=== PATIENT | female | born 1990 | race Hispanic/Latino ===

== ENCOUNTER 2020-12-01 08:29 | Outpatient (CLI) | payer OTHER ==
[2020-12-01 17:59] LABS: SARS-CoV-2 PCR by NAA Not Detected (NotDetected)
== END 2020-12-01 08:30 | disposition home or self-care (01) ==
LOC: CSHLAB 08:29
PROVIDERS: ATTEND Family Medicine
DX: Z20.822 Contact with and (suspected) exposure to COVID-19 (principal)
CPT/HCPCS: 87635; U0003; U0005

== ENCOUNTER 2020-12-04 18:57 | Inpatient (IN) | payer MEDICAID, OTHER, SELFPAY ==
[~2020-12-04 18:57] MED LIST: Bupivacaine 0.25% HCL 30 ML VIAL ONE
[2020-12-04] MEDS: Lactated Ringer's 1,000 ML IV SCH (20:48)
[2020-12-04] MEDS ORDERED: NS / Oxytocin 40 units/1000ml 1,000 ML IV PRN (20:50)
[2020-12-04] MEDS ORDERED: Ondansetron PF 4 MG/2 ML Vial IVP PRN (20:50)
[2020-12-04] MEDS ORDERED: Diphenoxylate HCl/Atropine Tablet PO PRN (20:50)
[2020-12-04] MEDS ORDERED: Promethazine HCl 25 MG/ML VIAL IM PRN (20:50)
[2020-12-04] MEDS ORDERED: Carboprost 250 MCG/ML AMP IM PRN (20:50)
[2020-12-04] MEDS ORDERED: Methylergonovine 0.2 MG/ML VIAL IM PRN (20:50)
[2020-12-04] MEDS ORDERED: Ibuprofen 800 MG TAB PO PRN (20:50)
[2020-12-04] MEDS ORDERED: Butorphanol Tartrate 1 MG/ML VIAL SLOW IVP PRN (20:50)
[2020-12-04] MEDS ORDERED: Misoprostol 200 MCG TAB PR PRN (20:50)
[2020-12-04] MEDS ORDERED: HYDROcodone/Acetaminophen 5/325 mg Tablet PO PRN (20:50)
[2020-12-04] MEDS ORDERED: Lidocaine 1% (PF) 30 ML VIAL SC PRN (20:50)
[2020-12-04] MEDS ORDERED: hydrALAZINE 20 MG/ML VIAL SLOW IVP PRN (20:50)
[2020-12-04] MEDS ORDERED: Penicillin G Potassium 5 MILL.UNITS in Sodium Chloride 0.9% 100 ML IVPB SCH (21:00)
[2020-12-04 21:08] LABS: Hemoglobin 14.2 g/dL (12.0-15.5); Mean Corpuscular HGB CONC 34.1 g/dL (32.0-36.0); Mean Corpuscular Hemoglobin 31.7 pg (27.0-33.0); Mean Corpuscular Volume 93.1 fl (81.6-98.3); Mean Platelet Volume 10.2 fl (7.4-10.4); Platelet Count 193 10x3/uL (150-450); RBC Distribution Width 13.6 % (11.5-14.5); Red Blood Cell (RBC) Count 4.48 10x6/uL (3.90-5.03); White Blood Cell (WBC) Count 7.5 10x3/uL (3.5-10.5)
[2020-12-04] MEDS ORDERED: Misoprostol 100 MCG TAB ONE (21:30)
[2020-12-04] MEDS ORDERED: Penicillin G Potassium 5 MILL.UNITS VIAL ONE (21:31)
[2020-12-04 21:43] LABS: Syphilis Antibody Nonreactive (Nonreactive); Syphilis Antibody Index 0.02 S/CO (<1.00 Non-Reactive)
[2020-12-04 21:44] LABS: Hep B Surf Ag Non-Reactive S/CO (NonReactive)
[2020-12-04] MEDS: Misoprostol 100 MCG TAB VAG SCH (21:44)
[2020-12-04 21:51] LABS: HBSAg Index 0.12 S/CO (0-0.99)
[2020-12-05 00:11] VITALS: BMI 28.1
[2020-12-05] MEDS: Lactated Ringer's 1,000 ML IV SCH ×2 (01:46→09:48)
[2020-12-05] MEDS: Penicillin G 2.5 MILL.units 2.5 MILL.UNITS in Premix Bag 1 BAG IVPB SCH ×4 (01:53→14:20)
[2020-12-05] MEDS: Misoprostol 100 MCG TAB VAG SCH ×2 (04:56→08:35)
[2020-12-05] MEDS ORDERED: Fentanyl 4 mcg/Bup 0.1% Cadd 100 ML ONE (09:41)
[2020-12-05] MEDS ORDERED: NS w/ Oxytocin 30 units 500 ML ONE (09:41)
[2020-12-05] MEDS ORDERED: Ondansetron PF 4 MG/2 ML Vial IVP PRN ×2 (10:20→17:43)
[2020-12-05] MEDS ORDERED: Lactated Ringer's 500 ML IV PRN (10:20)
[2020-12-05] MEDS ORDERED: Acetaminophen 325 MG TAB PO PRN (10:20)
[2020-12-05] MEDS ORDERED: diphenhydrAMINE 50 MG/ML VIAL IVP PRN (10:20)
[2020-12-05] MEDS ORDERED: Naloxone HCl 0.4 mg/ml Vial IVP PRN ×2 (10:20)
[2020-12-05] MEDS ORDERED: Promethazine HCl 25 MG/ML VIAL IM PRN ×2 (10:20→17:43)
[2020-12-05] MEDS ORDERED: Communication Order-Pharmacy FS SCH (10:30)
[2020-12-05] MEDS ORDERED: Fentanyl 4 mcg/Bupivacaine 0.1% Cassette 100 ML EPIDURAL SCH (10:30)
[2020-12-05] MEDS ORDERED: ePHEDrine Sulfate 50 MG/10 ML VIAL SLOW IVP PRN (11:07)
[2020-12-05] MEDS ORDERED: NS w/ Oxytocin 30 units 500 ML IV PRN (11:15)
[2020-12-05 17:25] LABS: Notified Whom: L&D
[2020-12-05 17:26] LABS: Notified Whom: L&D; pH (Cord, venous) 7.307 (7.250-7.350)
[2020-12-05] MEDS ORDERED: Milk Of Magnesia 30 ML UDCUP PO PRN (17:43)
[2020-12-05] MEDS ORDERED: Lanolin Ointment 7 GM TUBE TOP PRN (17:43)
[2020-12-05] MEDS ORDERED: Benzocaine-Menthol 82.5 ML CAN TOP PRN (17:43)
[2020-12-05] MEDS ORDERED: diphenhydrAMINE 25 MG CAP PO PRN (17:43)
[2020-12-05] MEDS ORDERED: Bisacodyl 10 MG SUPP PR PRN (17:43)
[2020-12-05] MEDS ORDERED: Adacel (T-DAP) 0.5 ML SYRINGE IM ONE (17:43)
[2020-12-05] MEDS ORDERED: hydrALAZINE 20 MG/ML VIAL SLOW IVP PRN (17:43)
[2020-12-05] MEDS ORDERED: Preparation H Ointment 28 GM TUBE PR PRN (17:43)
[2020-12-05] MEDS ORDERED: HYDROcodone/Acetaminophen 5/325 mg Tablet PO PRN ×2 (17:43)
[2020-12-05] MEDS ORDERED: NS w/ Oxytocin 30 units 500 ML IVPB SCH (18:00)
[2020-12-05] MEDS: CEFAZOLIN 2 GM in Premix Bag 1 BAG IVPB SCH (18:20)
[2020-12-05] MEDS ORDERED: Azithromycin 500 MG in Sodium Chloride 0.9% 250 ML 250 ML IVPB ONE (18:30)
[2020-12-05] MEDS: Docusate Calcium (SURFAK) 240 MG CAP PO SCH (21:31)
[2020-12-05] MEDS: Ibuprofen 800 MG TAB PO SCH (21:31)
[2020-12-06] MEDS: Penicillin G 2.5 MILL.units 2.5 MILL.UNITS in Premix Bag 1 BAG IVPB SCH (00:05)
[2020-12-06] MEDS: CEFAZOLIN 2 GM in Premix Bag 1 BAG IVPB SCH ×2 (03:18→11:02)
[2020-12-06 06:01] LABS: Hemoglobin 12.3 g/dL (12.0-15.5); Mean Corpuscular HGB CONC 34.5 g/dL (32.0-36.0); Mean Corpuscular Hemoglobin 31.9 pg (27.0-33.0); Mean Corpuscular Volume 92.5 fl (81.6-98.3); Mean Platelet Volume 10.2 fl (7.4-10.4); Platelet Count 149 10x3/uL (150-450); RBC Distribution Width 13.4 % (11.5-14.5); Red Blood Cell (RBC) Count 3.86 10x6/uL (3.90-5.03); White Blood Cell (WBC) Count 10.7 10x3/uL (3.5-10.5)
[2020-12-06] MEDS: Ibuprofen 800 MG TAB PO SCH ×3 (07:12→21:54)
[2020-12-06] MEDS: Ferrous Sulfate 325 MG TAB PO SCH ×2 (08:10→15:17)
[2020-12-06] MEDS: Docusate Calcium (SURFAK) 240 MG CAP PO SCH ×2 (09:33→21:54)
[2020-12-06] MEDS: Prenatal Vitamin 1 TAB PO SCH (09:33)
[2020-12-07] MEDS: Ibuprofen 800 MG TAB PO SCH (05:51)
[2020-12-07 07:41] VITALS: BP 100/62; TEMP 98.1
[2020-12-07] MEDS: Ferrous Sulfate 325 MG TAB PO SCH (08:04)
[2020-12-07] MEDS: Prenatal Vitamin 1 TAB PO SCH (08:05)
[2020-12-07] MEDS: Docusate Calcium (SURFAK) 240 MG CAP PO SCH (08:05)
== END 2020-12-07 11:20 | disposition home or self-care (01) | DRG 807 ==
LOC: CSHLD/OP 18:57 → CSHLD 19:00 → INTOOBSV 19:00 → OBSVTOIN 19:00 → CSHLD 20:18 → CSHPP 12-05 19:39
PROVIDERS: ADMIT Family Medicine; ATTEND Family Medicine
PROC: 10D07Z6 Extraction of Products of Conception, Vacuum, Via Natural or Artificial Opening (ICD-10-PCS; principal; 2020-12-05)
PROC: 0KQM0ZZ Repair Perineum Muscle, Open Approach (ICD-10-PCS; 2020-12-05)
PROC: 4A0HXCZ Measurement of Products of Conception, Cardiac Rate, External Approach (ICD-10-PCS; 2020-12-05)
PROC: 0W8NXZZ Division of Female Perineum, External Approach (ICD-10-PCS; 2020-12-05)
DX: O24.429 Gestational diabetes mellitus in childbirth, unspecified control (principal); Z37.0 Single live birth; O99.824 Streptococcus B carrier state complicating childbirth; Z3A.39 39 weeks gestation of pregnancy; O76 Abnormality in fetal heart rate and rhythm complicating labor and delivery; O66.5 Attempted application of vacuum extractor and forceps; O70.1 Second degree perineal laceration during delivery
CPT/HCPCS: 36415; 36416; 51702; 82805; 85027; 86780; 86850; 86900; 86901; 87340; J0456; J0595; J0690; J2001; J2210; J2540; J2590; J3490; J7050; S0020